=== PATIENT | male | born 2000 | race Caucasian/White ===

== ENCOUNTER 2022-03-16 10:22 | Emergency (ER) | payer SELFPAY ==
[2022-03-16 10:39] VITALS: BP 131/70; PULSE 87; RESP 16; TEMP 36.9; O2SAT 99
--- NOTE | 2022-03-16 10:49 | ED.URI ---
HPI - URI/Sore Throat General Chief Complaint: Upper Respiratory Infection Stated Complaint: Sinus,Cough,Chest Pain Time Seen by Provider: 03/16/22 11:09 Source: patient and RN notes reviewed Mode of arrival: ambulatory Limitations: no limitations History of Present Illness HPI Narrative: 21-year-old male presents with concern for cough, chest pain with coughing, sinus congestion. Reports symptoms started yesterday. Reports he was unable to go to work today due to his symptoms. He reports some mild sore throat with coughing. He denies fever, body aches, chills, sweats. MD elicited complaint: cough and sore throat Related Data Allergies Allergy/AdvReac Type Severity Reaction Status Date / Time No Known Allergies Allergy Verified 03/16/22 11:08 Review of Systems Review of Systems: CONSTITUTIONAL: Denies malaise, chills, sweats, or fever. EYES: Denies visual changes, redness, or discharge. ENT: Reports rhinorrhea, congestion, sinus pain and sore throat. CARDIOVASCULAR: Denies chest pain, palpitations, or edema. RESPIRATORY: Reports cough. Denies dyspnea. GASTROINTESTINAL: Denies abdominal pain, nausea, vomiting, diarrhea SKIN: Denies rash or itching. MUSCULOSKELETAL: Denies myalgia. NEUROLOGIC: Denies headache. All systems reviewed & are unremarkable except as noted in HPI and below PMFSH Comments At time of signature, agree with nursing past medical, surgical, social and family history. There is no relevant family history pertinent to the presenting complaint Exam Narrative: GENERAL: Well-appearing, well-nourished, and in no acute distress. HEAD: Normocephalic EYES: PERRLA, conjunctivae clear ENT: Nares clear, turbinates edematous and erythematous, clear discharge. Mucous membranes moist. TM pearly mckeon with dull light reflex bilaterally; no tragal tenderness. Oropharynx not erythematous without lesions. Tonsils not enlarged and without exudate, no drooling, no hoarseness, no trismus, uvula midline. NECK: Supple. No lymphadenopathy CHEST: Clear to auscultation, breath sounds equal. No wheezing, rhonchi, rales, or stridor. No respiratory distress, speaks in full sentences. Cough noted HEART: Regular rate and rhythm. No murmur heard. SKIN: Warm, dry, no rash. NEURO: Alert and oriented x3. PSYCH: Normal mood and affect Course Course Emergency Course: Patient is aware of diagnosis, understands and agrees to treatment plan. Anticipatory guidance given. Patient agrees to follow-up as directed and is aware of reasons to seek care at the emergency department. Portions of this record may have been created with voice recognition software Level of Care: Express Care Visit Vital Signs Vital signs: Vital Signs Temperature 98.5 F 03/16/22 10:39 Pulse Rate 87 03/16/22 10:39 Respiratory Rate 16 03/16/22 10:39 Blood Pressure 131/70 03/16/22 10:39 Pulse Oximetry 99 03/16/22 10:39 Oxygen Delivery Room Air 03/16/22 10:39 Temperature 98.5 F 03/16/22 10:39 Pulse Rate 87 03/16/22 10:39 Respiratory Rate 16 03/16/22 10:39 Blood Pressure 131/70 03/16/22 10:39 Pulse Oximetry 99 03/16/22 10:39 Oxygen Delivery Room Air 03/16/22 10:39 Reviewed. MDM - URI/Sore Throat MDM Narrative Medical decision making narrative: Differential diagnosis considered: [place] virus, strep pharyngitis, allergic rhinitis, upper respiratory tract infection, sinusitis, rhinosinusitis, nasopharyngitis. viral pharyngitis, otitis media, otitis externa, pneumonia, bronchitis, viral cough syndrome, viral syndrome, and influenza. Exam findings show no acute concerns or changes; patient is non-toxic appearing and is in no distress. Patient is appropriate for outpatient treatment and follow-up. Lab Data Attestation: I reviewed the patient's lab results. Critical Care Time Critical Care Time Critical Care Time: No Discharge Plan Discharge Clinical Impression: Upper respiratory infection Patient Disposition: Home
== END 2022-03-16 11:22 | disposition home or self-care (01) ==
PROVIDERS: Emergency Provider Nurse Practitioner
DX: J06.9 Acute upper respiratory infection, unspecified (principal)
CPT/HCPCS: 99203; G0463

== ENCOUNTER 2022-12-10 14:08 | Emergency (ER) | payer OTHER, SELFPAY ==
--- NOTE | ~2022-12-10 | CT_ITS ---
EXAMINATION: CT brain wo con DATE: 12/10/2022 15:49 INDICATION: Head injury with laceration to the forehead TECHNIQUE: Computed tomography (CT) of the head was performed without intravenous contrast. Sagittal and coronal reconstructions were performed. The mA was adjusted according to patient size. Iterative reconstruction technique was employed. The dose-length product was 605.33 mGy-cm. COMPARISON: None FINDINGS: Small left frontal scalp laceration. No fracture. No acute intracranial hemorrhage, acute infarction or abnormal extra axial fluid collection. Ventricles are normal and symmetric. No mass/mass effect. T he orbits, paranasal sinuses and mastoid air cells are normal. IMPRESSION: 1. Normal brain. No fracture or acute intracranial process. Reviewed, dictated and finalized at location L.
[2022-12-10 14:12] VITALS: BP 114/78; PULSE 86; RESP 16; TEMP 36.9; O2SAT 100
--- NOTE | 2022-12-10 16:17 | ED.WOUNDLAC ---
HPI - Wound/Laceration General Chief Complaint: Wound/Laceration Stated Complaint: head injury and laceration Time Seen by Provider: 12/10/22 14:46 Source: patient Mode of arrival: ambulatory Limitations: no limitations History of Present Illness HPI narrative: Patient is a 22-year-old male who presents ED with report of a head injury. 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 He sustained a small laceration to his left forehead. Denied any LOC. Denies any neck pain, dizziness, lightheadedness, vision changes, nausea, vomiting. Tetanus up-to-date as of 1 year ago. No other injuries. Related Data Allergies Allergy/AdvReac Type Severity Reaction Status Date / Time No Known Allergies Allergy Verified 12/10/22 14:09 Review of Systems Review of Systems: CONSTITUTIONAL: Denies fever, chills, or sweats. EYES: Denies visual changes. SKIN: See HPI. MUSCULOSKELETAL: Denies back pain, joint pain, or myalgia. NEUROLOGIC: See HPI. All systems reviewed & are unremarkable except as noted in HPI and below Exam Narrative: GENERAL: Well appearing, well-nourished, non-toxic, in no acute distress. HEAD: Normocephalic. 1.5 cm horizontal linear laceration to left upper forehead, mild surrounding contusion. No active bleeding. EYES: PERRLA/EOMI, conjunctiva clear. NECK: Supple. No adenopathy, no masses. No cervical spinal tenderness. RESPIRATORY: Airway patent, respirations nonlabored. Clear to auscultation bilaterally, no rales, rhonchi, wheezing. CARDIOVASCULAR: Regular rate and rhythm without murmurs, rubs, or gallops. Radial pulses 2+ and equal bilaterally. MUSCULOSKELETAL: Moves all extremities. Strength/ROM intact without gross deformities. SKIN: Warm, dry, normal color. No rashes. NEURO: A&O X3. Speech clear. Cranial nerves II-XII grossly intact. Steady gait. No ataxic movements. PSYCHIATRIC: Appropriate mood and affect. Normal interaction. Course Vital Signs Vital signs: Vital Signs Temperature 98.5 F 12/10/22 14:12 Pulse Rate 86 12/10/22 14:12 Respiratory Rate 16 12/10/22 14:12 Blood Pressure 114/78 12/10/22 14:12 Pulse Oximetry 100 12/10/22 14:12 Oxygen Delivery Room Air 12/10/22 14:12 Temperature 98.5 F 12/10/22 14:12 Pulse Rate 86 12/10/22 14:12 Respiratory Rate 16 12/10/22 14:12 Blood Pressure 114/78 12/10/22 14:12 Pulse Oximetry 100 12/10/22 14:12 Oxygen Delivery Room Air 12/10/22 14:12 Procedures Laceration Laceration 1: Date: 12/10/22 Time: 16:40 Site: face Side (If applicable): left Size (cm): 1.5 Description: linear Depth: simple, single layer Local Anesthetic: lidocaine 1% Amount of anesthesia used (mL): 5 Pre-repair: wound explored and irrigated ====== Skin Level ====== Skin layer closed with: nylon Size (cm): 5-0 Number of sutures: 3 Technique: simple, interrupted ====== Subcutaneous Layer ====== ====== Muscle Layer ====== ====== Tendon Layer ====== MDM - Wound/Laceration MDM Narrative Medical decision making narrative: CT brain negative. Laceration repaired without complications. Tetanus up-to-date. Medical Records Attestation: I reviewed the patient's medical records. Imaging Data Attestation: I personally reviewed and interpreted this imaging study as follows: Radiologist's impression: ITS Impressions Head CT 12/10/22 15:51 IMPRESSION: 1. Normal brain. No fracture or acute intracranial process. Discharge Plan Discharge Clinical Impression: Laceration of forehead Qualifiers: Encounter type: initial encounter Qualified Code(s): S01.81XA - Laceration without foreign body of other part of head, initial encounter Closed head injury Qualifiers: Encounter type: initial en
[2022-12-10] MEDS: LIDOCAINE HCL 1% LOCAL INJ 10 ML VIAL 5 ML INFILTRATE (17:26)
== END 2022-12-10 17:46 | disposition home or self-care (01) ==
PROVIDERS: Emergency Provider Physician Assistant
DX: S01.81XA Laceration without foreign body of other part of head, initial encounter (principal); W30.89XA Contact with other specified agricultural machinery, initial encounter
CPT/HCPCS: 12011; 70450; 99284

== ENCOUNTER 2022-12-17 08:26 | Emergency (ER) | payer OTHER, SELFPAY ==
[2022-12-17 08:29] VITALS: BP 114/72; PULSE 70; RESP 16; TEMP 36.9; O2SAT 100
--- NOTE | 2022-12-17 09:39 | ED.RECABL ---
HPI - Recheck/Abnormal Lab/Rx General Chief Complaint: Recheck/Abnormal Lab/Rx Stated Complaint: SUTURE REMOVAL Time Seen by Provider: 12/17/22 09:11 Source: patient Mode of arrival: ambulatory Limitations: no limitations History of Present Illness HPI narrative: This is a 22-year-old male that presents to the emergency department for suture removal. He had his sutures placed here 1 week ago. No other complaints. Denies fevers or redness. Related Data Allergies Allergy/AdvReac Type Severity Reaction Status Date / Time No Known Allergies Allergy Verified 12/17/22 09:12 [facility] Past Medical History Medical History (Updated 12/17/22 @ 09:43 by Freida Hart PA-C) No active medical problems Social History Social History (Updated 12/17/22 @ 09:43 by Freida Hart PA-C) Substance use: never Exam Narrative: GENERAL: Well-appearing, well-nourished, and in no acute distress. HEAD: Normocephalic. 2 cm linear laceration to the left forehead that is well-healing. [address] No erythema, edema or abnormal drainage EYES: EOMI. CHEST: No respiratory distress. HEART: Regular rate EXTREMITIES: Normal range of motion. No edema. SKIN: Warm, dry, no rash. NEURO: No focal deficits. Alert and oriented x3. PSYCH: Normal mood and affect Course Course Emergency Course: Patient instructed on continued care of his wound Vital Signs Vital signs: Vital Signs Temperature 98.4 F 12/17/22 08:29 Pulse Rate 70 12/17/22 08:29 Respiratory Rate 16 12/17/22 08:29 Blood Pressure 114/72 12/17/22 08:29 Pulse Oximetry 100 12/17/22 08:29 Temperature 98.4 F 12/17/22 08:29 Pulse Rate 70 12/17/22 08:29 Respiratory Rate 16 12/17/22 08:29 Blood Pressure 114/72 12/17/22 08:29 Pulse Oximetry 100 12/17/22 08:29 MDM - Recheck/Abnormal Lab/Rx MDM Narrative Medical decision making narrative: Patient presents to the emergency department for suture removal. This was done without complications. Instructed on continued care of his wound Critical Care Time Critical Care Time Critical Care Time: No Discharge Plan Discharge Clinical Impression: Encounter for removal of sutures Patient Disposition: Home, Self-Care Condition: Stable Instructions: Stitches Removal (ED) Additional Instructions: Return to the emergency department if you experience fever, redness or swelling of your wound, abnormal drainage from your wound, or any other symptoms that are concerning to you. Apply antibiotic ointment daily. Do not soak the wound. Clean with mild soap and water daily Follow-up with primary care doctor if needed Prescriptions: No Action cetirizine-pseudoephedrine [Zyrtec-D] 5-120 mg tablet extended release 12 hr 1 tablet PO Q12H PRN (Reason: nasal congestion) Qty: 12 0RF promethazine-DM 6.25-15 mg/5 mL syrup 5 ml PO Q4-6H PRN (Reason: cough) Qty: 120 0RF dextromethorphan-guaifenesin [Mucinex DM] 60-1,200 mg tablet extended release 12 hr 1 tablet PO Q12H Qty: 12 0RF Follow-up/Referrals: PHYSICIAN,OPERATION SHIFT SUPERVISOR [Primary Care Provider] - Ji Barton MD [Physician] -
== END 2022-12-17 09:50 | disposition home or self-care (01) ==
PROVIDERS: Emergency Provider Physician Assistant
DX: Z48.02 Encounter for removal of sutures (principal)
CPT/HCPCS: 15853; 99281